=== PATIENT | male | born 1935 | race Caucasian/White ===

== ENCOUNTER 2017-11-18 10:24 | Outpatient (CLI) | payer OTHER ==
[~2017-11-18 10:24] MED LIST: KETO10TA2 PO; MEDROL DOSE PACK PO; TRAMADOL HCL-AP1 TAB PO
== END 2017-11-18 10:32 | disposition home or self-care (01) ==
LOC: MAMO-SONO 10:24
DX: Z12.31 Encounter for screening mammogram for malignant neoplasm of breast (principal); Z87.898 Personal history of other specified conditions

== ENCOUNTER 2018-02-02 09:34 | Outpatient (CLI) | payer OTHER | END 2018-02-02 11:15 | disposition home or self-care (01) | LOC: RAD 501 09:34 | DX: J44.9 Chronic obstructive pulmonary disease, unspecified (principal) ==

== ENCOUNTER 2019-07-26 09:40 | Emergency (ER) | payer OTHER ==
[~2019-07-26] VITALS: Ht 160 cm; Wt 61.2 kg
[2019-07-26] MEDS ORDERED: ARICEPT10 MG PO (09:56)
[2019-07-26] MEDS ORDERED: SIMVASTATIN PO (09:56)
[2019-07-26] MEDS ORDERED: NAMENDA XR28 MG PO (09:56)
[2019-07-26] MEDS ORDERED: COZAAR25 MG PO (09:57)
[2019-07-26] MEDS ORDERED: OXYBUTYNIN PO (09:57)
[2019-07-26] MEDS ORDERED: CIALIS PO (09:59)
== END 2019-07-26 14:39 | disposition home or self-care (01) ==
LOC: ER 09:40
DX: L03.115 Cellulitis of right lower limb (principal)

== ENCOUNTER 2022-11-08 04:28 | Emergency (ER) | payer OTHER ==
[~2022-11-08] VITALS: Ht 154.9 cm; Wt 60.8 kg
[~2022-11-08 04:28] MED LIST changes: +ARICEPT10 MG PO; +CIALIS PO; +COZAAR25 MG PO; +NAMENDA XR28 MG PO; +OXYBUTYNIN PO; +SIMVASTATIN PO
== END 2022-11-08 06:25 | disposition home or self-care (01) ==
LOC: ER 04:28
DX: S01.82XA Laceration with foreign body of other part of head, initial encounter (principal); W18.30XA Fall on same level, unspecified, initial encounter; Y93.9 Activity, unspecified; Y92.012 Bathroom of single-family (private) house as the place of occurrence of the external cause; G30.9 Alzheimer's disease, unspecified; F02.80 Dementia in other diseases classified elsewhere, unspecified severity, without behavioral disturbance, psychotic disturbance, mood disturbance, and anxiety; I10 Essential (primary) hypertension

== ENCOUNTER → 2022-11-13 | Emergency (ER) | payer OTHER ==
[~2022-11-13] VITALS: Ht 157.5 cm; Wt 60.3 kg
== END | disposition left against medical advice (07) ==
LOC: ER 08:20
DX: Z48.02 Encounter for removal of sutures (principal)

== ENCOUNTER → 2022-11-18 | Emergency (ER) | payer OTHER ==
[~2022-11-18] VITALS: Ht 157.5 cm; Wt 61.2 kg
== END | disposition left against medical advice (07) ==
LOC: ER 06:48
DX: Z53.21 Procedure and treatment not carried out due to patient leaving prior to being seen by health care provider (principal)